=== PATIENT | male | born 1980 | race Caucasian/White ===

== ENCOUNTER → 2021-06-26 | Outpatient (CLI) | payer SELFPAY ==
[~2021-06-26] MED LIST: BISOPROLOL-HCT1 EAC2 PO; IBUPROFEN600 MG PO; LISINOPRIL20 MG PO; PERCOCET 10-321 EACH PO; PROTONIX 40 MG40 M1 PO; TORADOL 10 MG T10 MG PO; ZOFRAN ODT 4 MG4 MG SL
== END ==
LOC: RAD 10:48
DX: S96.912A Strain of unspecified muscle and tendon at ankle and foot level, left foot, initial encounter (principal); S92.022A Displaced fracture of anterior process of left calcaneus, initial encounter for closed fracture
CPT/HCPCS: 73610; 73630

== ENCOUNTER → 2021-09-16 | Outpatient (CLI) | payer BC | LOC: KOH-I 10:33 | DX: M25.572 Pain in left ankle and joints of left foot (principal); M79.672 Pain in left foot | CPT/HCPCS: 73610; 73630 ==

== ENCOUNTER → 2021-09-26 | Outpatient (CLI) | payer OTHER | LOC: KOH-I 10:17 | DX: S93.492A Sprain of other ligament of left ankle, initial encounter (principal); M25.572 Pain in left ankle and joints of left foot; S92.102A Unspecified fracture of left talus, initial encounter for closed fracture; X58.XXXA Exposure to other specified factors, initial encounter; M19.072 Primary osteoarthritis, left ankle and foot | CPT/HCPCS: 73721 ==

== ENCOUNTER 2021-12-16 05:50 | Observation (INO) | payer BC ==
[~2021-12-16] VITALS: Ht 190.5 cm; Wt 108.4 kg
[2021-12-16 06:32] LABS: HEMOGLOBIN 13.9 gm/dl (14.0-17.5); RED BLOOD COUNT 5.09 M/UL (4.20-5.50); WHITE BLOOD COUNT 6.9 K/UL (4.5-11.0)
[2021-12-16 06:59] LABS: BUN/CREATININE RATIO 13 (0-10)
[2021-12-16] MEDS ORDERED: BUSPIRONE HCL15 MG PO (12:10)
[2021-12-16] MEDS ORDERED: CELEXA20 MG PO (12:10)
[2021-12-16] MEDS ORDERED: LORATADINE10 MG PO (12:11)
[2021-12-16] MEDS ORDERED: DICLOFENAC POTA50 MG PO (12:11)
[2021-12-16] MEDS ORDERED: NABUMETONE500 MG PO (12:12)
[2021-12-16] MEDS ORDERED: VOLTAREN ARTHRI20 GM TOP (12:13)
[2021-12-16] MEDS ORDERED: VITAMIN D21250 MCG PO (12:13)
[2021-12-17 03:31] LABS: HEMOGLOBIN 13.5 gm/dl (14.0-17.5); WHITE BLOOD COUNT 7.8 K/UL (4.5-11.0)
[2021-12-17 03:59] LABS: BUN/CREATININE RATIO 11 (0-10)
== END 2021-12-18 12:02 | disposition home or self-care (01) ==
LOC: ER1 05:50 → CDU 11:28 → PROG CARE 11:28
PROVIDERS: Physician Assistant; Physician Assistant Medical; ADMIT Internal Medicine
DX: I20.9 Angina pectoris, unspecified (principal); R00.1 Bradycardia, unspecified; I11.9 Hypertensive heart disease without heart failure; E66.9 Obesity, unspecified; F17.220 Nicotine dependence, chewing tobacco, uncomplicated; Z68.29 Body mass index [BMI] 29.0-29.9, adult; Z82.49 Family history of ischemic heart disease and other diseases of the circulatory system
CPT/HCPCS: ECHO; 71045; 78452; 80048; 80053; 82550; 82553; 83690; 83735; 84439; 84443; 84484; 85025; 85027; 93005; 93017; 93270; 93306; 96374; 99285; A9502; G0378; J1885; J2785